=== PATIENT | male | born 1950 | race Caucasian/White ===

== ENCOUNTER 2018-11-24 07:07 | Emergency (ER) | payer MEDICARE, OTHER ==
[2018-11-24] MEDS ORDERED: Sodium Chloride 0.9% 1,000 ML ONE (08:11)
[2018-11-24] MEDS ORDERED: Morphine 4 MG/ML VIAL ONE (08:11)
[2018-11-24 08:34] LABS: ALT (SGPT) 22 U/L (8-55); AST (SGOT) 28 U/L (5-34); Albumin 4.2 g/dL (3.4-4.8); Alkaline Phosphatase 66 U/L (40-150); Anion Gap 18 mmol/L (10-20); BUN (Urea Nitrogen) 16 mg/dL (8.4-25.7); Bilirubin, Total 0.5 mg/dL (0.2-1.2); Calc. Creatinine Clearance 0 mL/min (70-130); Calcium 9.3 mg/dL (7.8-10.44); Carbon Dioxide 25 mmol/L (23-31); Chloride 104 mmol/L (98-107); Estimated GFR-MDRD 67; Globulin 2.7 g/dL (2.4-3.5); Glucose 109 mg/dL (80-115); Potassium 4.5 mmol/L (3.5-5.1); Protein, Total 6.9 g/dL (5.8-8.1); Sodium 142 mmol/L (136-145)
[2018-11-24 08:35] LABS: Band 15 % (5-11); Hemoglobin 16.1 g/dL (14.0-18.0); MDiff Complete? YES; Mean Corpuscular HGB CONC 32.2 g/dL (32.0-36.0); Mean Corpuscular Hemoglobin 29.9 pg (27.0-31.0); Mean Corpuscular Volume 93.1 fL (78.0-98.0); Mean Platelet Volume 6.4 fL (7.4-10.4); Monocytes 4 % (0-10); Neutrophil 76 % (42-75); Platelet Count 170 thou/uL (130-400); Platelet Morphology Comment Appears Adequate; RBC Distribution Width 12.3 % (11.5-14.5); RBC Morphology Normal; Reactive Lymphocytes 5 % (0-10); Red Blood Cell (RBC) Count 5.38 mill/uL (4.70-6.10); White Blood Cell (WBC) Count 13.7 thou/uL (4.8-10.8)
[2018-11-24 08:49] LABS: Bilirubin Small (Negative); Blood, Urine Negative (Negative); Clarity Hazy (Clear); Glucose, Urine (Dipstick) Negative (Negative); Leukocyte Trace (Negative); Nitrite Negative (Negative); Protein, Urine (Dipstick) 30 mg/dL (Neg-Trace); Urobilinogen 0.2 mg/dL (0.2-1.0); pH, Urine 5.5 (5.0-9.0)
[2018-11-24 08:53] LABS: Bacteria/HPF Rare-Few HPF (None Seen); RBC/HPF None Seen HPF (0-3); Squamous Epithelial 0-3 HPF (0-3); WBC/HPF 21-50 HPF (0-3)
--- NOTE | 2018-11-24 09:33 | CT ---
CT ABDOMEN AND PELVIS PERFORMED WITH CONTRAST ENHANCEMENT: Date: 11/24/18 HISTORY: Severe left lower quadrant pain, diarrhea. FINDINGS: The lung bases are clear. The liver, spleen, and pancreas regions appear unremarkable. The gallbladder has been removed. Right and left adrenal glands, and right and left kidneys are normal. There is no significant periaor tic or mesenteric lymphadenopathy. CT of pelvis performed with intravenous contrast enhancement. There are some fluid-filled small bowel loops present. These do not appear distended. There is diverticulosis of the descending and sigmoid colon. Slight wall thickening is present, similar to the previous exam, may represent chronic change. I do not see any pericolonic inflammatory process. Compression changes of the T12 vertebral body are stable. IMPRESSION: 1. Small paraesophageal hernia. 2. Postop cholecystectomy change. 3. Diverticulosis of the descending and sigmoid colon without definite evidence for diverticulitis. POS: FENG
[2018-11-24] MEDS ORDERED: Iopamidol 370 76% 100 ML VIAL ONE (11:09)
== END 2018-11-24 10:00 | disposition home or self-care (01) ==
LOC: MADERS 07:07
DX: R10.32 Left lower quadrant pain (principal); R19.7 Diarrhea, unspecified; N39.0 Urinary tract infection, site not specified; I25.10 Atherosclerotic heart disease of native coronary artery without angina pectoris; I25.2 Old myocardial infarction; E78.5 Hyperlipidemia, unspecified; I10 Essential (primary) hypertension; J45.909 Unspecified asthma, uncomplicated; G40.909 Epilepsy, unspecified, not intractable, without status epilepticus; Z86.73 Personal history of transient ischemic attack (TIA), and cerebral infarction without residual deficits
CPT/HCPCS: 36415; 74177; 80053; 81003; 81015; 83605; 85025; 87086; 96361; 96374; J2270; J7050; Q9967

== ENCOUNTER 2019-04-11 18:51 | Emergency (ER) | payer MEDICARE, OTHER ==
[2019-04-11] MEDS ORDERED: Lidocaine 1% 20 ML MDV ONE (19:33)
[2019-04-11] MEDS ORDERED: Cephalexin 500 MG CAP ONE (20:06)
== END 2019-04-11 20:13 | disposition home or self-care (01) ==
LOC: MADERS 18:51
DX: D17.1 Benign lipomatous neoplasm of skin and subcutaneous tissue of trunk (principal); L03.112 Cellulitis of left axilla; I25.10 Atherosclerotic heart disease of native coronary artery without angina pectoris; I25.2 Old myocardial infarction; E78.5 Hyperlipidemia, unspecified; I10 Essential (primary) hypertension; G40.909 Epilepsy, unspecified, not intractable, without status epilepticus; Z86.73 Personal history of transient ischemic attack (TIA), and cerebral infarction without residual deficits; Z79.899 Other long term (current) drug therapy; Z79.51 Long term (current) use of inhaled steroids; Z79.82 Long term (current) use of aspirin
CPT/HCPCS: 10060; J2001

== ENCOUNTER 2019-04-14 09:10 | Emergency (ER) | payer MEDICARE, OTHER | END 2019-04-14 09:40 | disposition home or self-care (01) | LOC: MADERS 09:10 | DX: L02.412 Cutaneous abscess of left axilla (principal); I25.10 Atherosclerotic heart disease of native coronary artery without angina pectoris; I25.2 Old myocardial infarction; E78.5 Hyperlipidemia, unspecified; E78.00 Pure hypercholesterolemia, unspecified; I10 Essential (primary) hypertension; J45.909 Unspecified asthma, uncomplicated | CPT/HCPCS: 99282 ==

== ENCOUNTER 2019-08-20 18:37 | Emergency (ER) | payer MEDICARE, OTHER ==
[2019-08-20] MEDS ORDERED: Clindamycin 150 MG CAP ONE (19:01)
[2019-08-20] MEDS ORDERED: Acetaminophen 500 MG TAB ONE (19:01)
== END 2019-08-20 19:07 | disposition home or self-care (01) ==
LOC: MADERS 18:37
DX: K13.0 Diseases of lips (principal); E78.5 Hyperlipidemia, unspecified; E78.00 Pure hypercholesterolemia, unspecified; F41.9 Anxiety disorder, unspecified; I25.10 Atherosclerotic heart disease of native coronary artery without angina pectoris; K21.9 Gastro-esophageal reflux disease without esophagitis; I10 Essential (primary) hypertension; Z86.73 Personal history of transient ischemic attack (TIA), and cerebral infarction without residual deficits; I25.2 Old myocardial infarction; G40.909 Epilepsy, unspecified, not intractable, without status epilepticus; J45.909 Unspecified asthma, uncomplicated; Z85.828 Personal history of other malignant neoplasm of skin; Z79.82 Long term (current) use of aspirin; Z79.899 Other long term (current) drug therapy
CPT/HCPCS: 99283

== ENCOUNTER 2022-05-12 17:56 | Emergency (ER) | payer MEDICARE ==
[2022-05-12] MEDS ORDERED: Aspirin Chewable 81 MG TAB ONE (18:05)
[2022-05-12] MEDS ORDERED: Nitroglycerin 0.4 MG TAB 1 EACH ONE ×3 (18:09→19:14)
[2022-05-12 18:17] LABS: #Basophils 0.1 thou/uL (0.0-0.2); #Eosinphils 0.1 thou/uL (0.0-0.7); #Lymphocytes 0.8 thou/uL (1.20-3.40); #Monocytes 0.5 thou/uL (0.11-0.59); #Neutrophils 6.3 thou/uL (1.40-6.50); %Basophils 1.6 % (0.0-1.0); %Lymphocytes 10.3 % (21.0-51.0); %Monocytes 6.8 % (0.0-10.0); %Neutrophils 80.4 % (42.0-75.0); Hemoglobin 14.6 g/dL (14.0-18.0); Mean Corpuscular HGB CONC 32.4 g/dL (32.0-36.0); Mean Corpuscular Hemoglobin 31.7 pg (27.0-31.0); Mean Corpuscular Volume 97.6 fL (78.0-98.0); Mean Platelet Volume 7.5 fL (7.4-10.4); Platelet Count 202 thou/uL (130-400); White Blood Cell (WBC) Count 7.8 thou/uL (4.8-10.8)
[2022-05-12 18:32] LABS: ALT (SGPT) 49 U/L (8-55); AST (SGOT) 99 U/L (5-34); Alkaline Phosphatase 70 U/L (40-110); Anion Gap 15 mmol/L (10-20); BUN (Urea Nitrogen) 20 mg/dL (8.4-25.7); Bilirubin, Total 0.6 mg/dL (0.2-1.2); Calc. Creatinine Clearance 0 mL/min (70-130); Calcium 9.5 mg/dL (7.8-10.44); Carbon Dioxide 26 mmol/L (23-31); Chloride 105 mmol/L (98-107); Estimated GFR 83; Glucose 140 mg/dL (83-110); Lipase 28 U/L (8-78); Potassium 4.3 mmol/L (3.5-5.1); Sodium 142 mmol/L (136-145)
[2022-05-12] MEDS ORDERED: Nitroglycerin 2% Ointment 1 INCH/1 GM Packet ONE (19:06)
[2022-05-12] MEDS ORDERED: Metoprolol Tartrate 5 MG/5 ML VIAL ONE (19:15)
[2022-05-12] MEDS ORDERED: Morphine 4 MG/ML VIAL ONE (19:34)
== END 2022-05-12 19:58 | disposition short-term general hospital (02) ==
LOC: MADERS 17:56
DX: R07.2 Precordial pain (principal); I49.1 Atrial premature depolarization; I25.10 Atherosclerotic heart disease of native coronary artery without angina pectoris; K21.9 Gastro-esophageal reflux disease without esophagitis; I25.2 Old myocardial infarction; E78.00 Pure hypercholesterolemia, unspecified; I10 Essential (primary) hypertension; J45.909 Unspecified asthma, uncomplicated; G40.409 Other generalized epilepsy and epileptic syndromes, not intractable, without status epilepticus; Z86.73 Personal history of transient ischemic attack (TIA), and cerebral infarction without residual deficits; Z95.5 Presence of coronary angioplasty implant and graft; Z85.828 Personal history of other malignant neoplasm of skin; Z79.82 Long term (current) use of aspirin; Z79.899 Other long term (current) drug therapy
CPT/HCPCS: 71045; 80053; 83690; 84484; 85025; 93005; 94760; 96374; 96375; J2270

== ENCOUNTER 2022-12-14 15:07 | Emergency (ER) | payer MEDICARE | END 2022-12-14 16:49 | disposition home or self-care (01) | LOC: MADERS 15:07 | DX: S51.012A Laceration without foreign body of left elbow, initial encounter (principal); I10 Essential (primary) hypertension; I25.10 Atherosclerotic heart disease of native coronary artery without angina pectoris; I25.2 Old myocardial infarction; G40.409 Other generalized epilepsy and epileptic syndromes, not intractable, without status epilepticus; E78.00 Pure hypercholesterolemia, unspecified; K21.9 Gastro-esophageal reflux disease without esophagitis; X58.XXXA Exposure to other specified factors, initial encounter; Z86.73 Personal history of transient ischemic attack (TIA), and cerebral infarction without residual deficits; Z95.5 Presence of coronary angioplasty implant and graft; Z79.01 Long term (current) use of anticoagulants; Z79.899 Other long term (current) drug therapy | CPT/HCPCS: 12002 ==